=== PATIENT | male | born 1955 | race Caucasian/White ===

== ENCOUNTER → 2016-12-13 | Outpatient (REF) | payer BC ==
[2016-12-13 17:18] LABS: FOLATE > 24.0 NG/ML; VITAMIN B12 LEVEL 410 PG/ML
== END ==
LOC: M LAB REF 16:11
PROVIDERS: ATTEND Nurse Practitioner Family
DX: R41.3 Other amnesia (principal)

== ENCOUNTER → 2017-01-24 | Outpatient (CLI) | payer BC ==
[~2017-01-24] VITALS: Ht 180.3 cm; Wt 90.7 kg
[~2017-01-24] MED LIST: ALEV220T26 PO; LIDOCAINE 2% INJ 100 MG/5 ML SDV (FOR ANES.) As Ordered ONE; NS 1,000 ML IV SCH; PROPOFOL 200 MG/20 ML VIAL As Ordered ONE; fentaNYL 100 MCG/2 ML INJECTION (J3010) As Ordered ONE
--- NOTE | 2017-01-24 12:41 | ROOR ---
Patient Name: Johnathan Garcia Procedure Date: 01/24/2017 12:21 PM Date of : 1955 Age: 61 Room: [facility] Gender: Male Note Status: Finalized Procedure: Upper GI endoscopy Indications: Heartburn Providers: Johnathan BROWNING MD Referring MD: VIVIANA NAIK NP Requesting Provider: Medicines: Monitored Anesthesia Care Complications: No immediate complications. Procedure: Pre-Anesthesia Assessment: - The heart rate, respiratory rate, oxygen saturations, blood pressure, adequacy of pulmonary ventilation, and response to care were monitored throughout the procedure. The Endoscope was introduced through the mouth, and advanced to the second part of duodenum. The upper GI endoscopy was accomplished without difficulty. The patient tolerated the procedure well. Findings: Mildly severe esophagitis was found at the gastroesophageal junction. A single 5 mm mucosal nodule was found at the gastroesophageal junction. Biopsies were taken with a cold forceps for histology. Mild inflammation was found in the gastric antrum. Biopsies were taken with a cold forceps for Helicobacter pylori testing. The exam was otherwise without abnormality. Impression: - Mild to moderate reflux esophagitis with inflammatory appearing nodularity. Biopsied rule out short segment Schmidt's esophagus. - Mild Gastritis. Biopsied. - The examination was otherwise normal. Recommendation: - Use Prilosec (omeprazole) 40 mg PO daily. - (the script was sent to your pharmacy on file) - Telephone endoscopist for pathology results in 2 weeks. Johnathan Browning MD Johnathan BROWNIGN MD 01/24/2017 12:41:22 PM This report has been signed electronically. Number of Addenda: 0 Note Initiated On: 01/24/2017 12:21 PM Estimated Blood Loss: Estimated blood loss: none.
--- NOTE | 2017-01-24 12:55 | ROOR ---
Patient Name: Johnathan Garcia Procedure Date: 01/24/2017 12:21 PM Date of : 1955 Age: 61 Room: [facility] Gender: Male Note Status: Finalized Procedure: Colonoscopy Indications: Screening for colorectal malignant neoplasm Providers: Johnathan BROWNING MD Referring MD: VIVIANA NAIK NP Requesting Provider: Medicines: Monitored Anesthesia Care Complications: No immediate complications. Procedure: Pre-Anesthesia Assessment: - The heart rate, respiratory rate, oxygen saturations, blood pressure, adequacy of pulmonary ventilation, and response to care were monitored throughout the procedure. The Colonoscope was introduced through the anus and advanced to the cecum, identified by appendiceal orifice and ileocecal valve. The colonoscopy was performed without difficulty. The patient tolerated the procedure well. The quality of the bowel preparation was good. Findings: The perianal and digital rectal examinations were normal. Internal hemorrhoids were found during retroflexion. The hemorrhoids were moderate. The entire examined colon appeared normal on direct and retroflexion views. Impression: - Internal hemorrhoids. - The colon is normal on direct and retroflexion views. - No specimens collected. Recommendation: - Repeat colonoscopy in 10 years for screening purposes. Johnathan Browning MD Johnathan BROWNING MD 01/24/2017 12:54:50 PM This report has been signed electronically. Number of Addenda: 0 Note Initiated On: 01/24/2017 12:21 PM Estimated Blood Loss: Estimated blood loss: none.
[2017-01-24 13:22] VITALS: BP 136/76
== END | disposition home or self-care (01) ==
LOC: M OPP 10:18
PROVIDERS: ATTEND Internal Medicine Gastroenterology
DX: Z12.11 Encounter for screening for malignant neoplasm of colon (principal); K64.8 Other hemorrhoids; R12 Heartburn; K21.0 Gastro-esophageal reflux disease with esophagitis; K22.8 Other specified diseases of esophagus; K29.70 Gastritis, unspecified, without bleeding; R51 Headache; R06.02 Shortness of breath; F17.210 Nicotine dependence, cigarettes, uncomplicated; Z79.899 Other long term (current) drug therapy; Z80.3 Family history of malignant neoplasm of breast; Z80.0 Family history of malignant neoplasm of digestive organs
CPT/HCPCS: 43239; 88305; 99156; 99157; G0121; J3010

== ENCOUNTER 2017-04-07 03:17 | Emergency (ER) | payer BC ==
[~2017-04-07] VITALS: Ht 180.3 cm; Wt 105.0 kg
[~2017-04-07 03:17] MED LIST changes: -LIDOCAINE 2% INJ 100 MG/5 ML SDV (FOR ANES.) As Ordered ONE; -NS 1,000 ML IV SCH; -PROPOFOL 200 MG/20 ML VIAL As Ordered ONE; -fentaNYL 100 MCG/2 ML INJECTION (J3010) As Ordered ONE
[2017-04-07] MEDS ORDERED: MORPHINE 4 MG/ML 1ML SYRINGE IM ONE (04:00)
--- NOTE | 2017-04-07 05:50 | REPUSA ---
CLINICAL HISTORY: Left upper extremity edema COMMENTS: Real time sonography with duplex doppler of the left upper extremity was performed with attention to the major deep venous structures. The left internal jugular, cephalic, basilic, radial and ulnar veins all reveal complete lumen compre ssibility without intraluminal thrombus. The left subclavian and axillary veins are also clear of thr ombus. There is normal spontaneous phasic flow and augmentation throughout the deep veins. IMPRESSION: No evidence of DVT in the left upper extremity. Thank you for your kind referral of this patient.
--- NOTE | 2017-04-07 06:40 | REPUSA ---
CLINICAL HISTORY: Wrist pain. COMMENTS: Standard views show no fracture or other significant osseous abnormality. Metacarpophalangeal joints are preserved. Soft tissue structures are intact. Mild osteoarthritic changes are noted at the 1st carpometacarpal joint demonstrated by osteophytosis, endplate sclerosis and joint space narrowing. IMPRESSION: 1. Osteoarthritic changes at the1st carpometacarpal joint. 2. No fracture or dislocation. Thank you for your kind referral of this patient.
[2017-04-07] MEDS ORDERED: TRAM50TA2 PO (06:46)
[2017-04-07 06:54] VITALS: BP 139/86
--- NOTE | 2017-04-07 07:40 | REP ---
Clinical: Pain and swelling Technique: AP, lateral left forearm. Findings: The osseous structures and joint spaces are intact and normal. There is no evidence for acute fracture or dislocation. Surrounding soft tissues are unremarkable. No subcutaneous emphysema or radiodense foreign body. Impression: Age appropriate examination. No acute fracture or dislocation. Signed by Neymar House MD 04/07/2017 07:32 A
== END 2017-04-07 07:12 | disposition home or self-care (01) ==
LOC: M ED 03:17
DX: M79.632 Pain in left forearm (principal); M79.89 Other specified soft tissue disorders; F17.200 Nicotine dependence, unspecified, uncomplicated

== ENCOUNTER → 2017-06-19 | Outpatient (REF) | payer BC ==
[~2017-06-19] MED LIST changes: +TRAM50TA2 PO
[2017-06-21 00:06] LABS: Lyme Disease IgG/IgM Antibodie <0.91 ISR (0.00-0.90); Lyme Disease IgM Ab Quantitati <0.80 index (0.00-0.79)
== END ==
LOC: M LAB REF 12:20
PROVIDERS: ATTEND Nurse Practitioner Family
DX: R21 Rash and other nonspecific skin eruption (principal)

== ENCOUNTER → 2017-12-15 | Outpatient (REF) | payer BC | LOC: M LAB REF 12:04 | DX: Z01.89 Encounter for other specified special examinations (principal) | CPT/HCPCS: 86803 ==

== ENCOUNTER → 2017-12-15 | Outpatient (CLI) | payer BC | LOC: M WUC 10:17 | DX: R06.02 Shortness of breath (principal); F17.210 Nicotine dependence, cigarettes, uncomplicated | CPT/HCPCS: 71046 ==

== ENCOUNTER → 2018-11-30 | Outpatient (CLI) | payer BC ==
--- NOTE | 2018-11-30 10:06 | REP ---
CERVICAL SPINE, EIGHT VIEWS: HISTORY: Neck and shoulder pain. The cervical spine is visualized from C1-C7 in the lateral radiographs. There is no acute fracture or subluxation. The C4-5 through C6-7 intervertebral discs are decreased in height consistent with disc degeneration. Osteophytes are present on C2 and C5-7. The neural foramina are patent. IMPRESSION: Degenerative change as described above. Electronically Signed by Kahlil Bazan MD 11/30/2018 10:22 A
== END ==
LOC: M WUC 08:47
PROVIDERS: ATTEND Physician Assistant
DX: M50.321 Other cervical disc degeneration at C4-C5 level (principal); M50.322 Other cervical disc degeneration at C5-C6 level; M50.323 Other cervical disc degeneration at C6-C7 level; M25.78 Osteophyte, vertebrae

== ENCOUNTER → 2019-03-08 | Outpatient (CLI) | payer BC ==
--- NOTE | 2019-03-08 13:18 | REP ---
Chronic back pain. COMPARISON: None. There is posterior disc space narrowing moderately at every level with anterior lipping. Vertebral body height and alignment is within normal limits. Degenerative facet joint changes are present at every level bilaterally. There is partial syndesmophyte formation seen bilaterally at L2-3 and on the left at L3-4. The pedicles are intact bilaterally. There is a possible mild grade 1 T12 compression deformity difficult to evaluate on this lumbar spine exam. IMPRESSION: 1. Chronic lumbar spine changes as described above. 2. Possible mild grade 1 T12 compression fracture. If that is the area of pain then I would recommend a thoracic spine series or an MRI if marrow edema is of clinical concern. Electronically Signed by Mahin Juárez DO 03/08/2019 04:43 P
== END ==
LOC: M WUC 12:04
PROVIDERS: ATTEND Physician Assistant
DX: M54.5 Low back pain (principal)

== ENCOUNTER → 2019-12-29 | Outpatient (REF) | payer BC | LOC: M WUC 12:09 | PROVIDERS: ATTEND Physician Assistant | DX: R05 Cough (principal) ==

== ENCOUNTER → 2020-03-19 | Outpatient (CLI) | payer BC ==
[~2020-03-19] MED LIST changes: +IBUP-1114 PO; +OMEP-221
--- NOTE | 2020-03-19 09:14 | REP ---
Clinical: Nontraumatic right shoulder pain. Technique: Internal rotation, external rotation, and Y view of the right shoulder. Findings: Small calcifications adjacent to the greater tuberosity suggest element of calcific tendinopathy. Cortical irregularity and subtle spurring at the acromioclavicular joint is also appreciated. The glenohumeral joint is intact and relatively normal. The subacromial space is normal. No acute fracture or dislocation. Impression: Early arthritic changes primarily involving the acromioclavicular joint as well as a evidence for calcific tendinopathy. Electronically Signed by Neymar House MD 03/19/2020 09:05 A
== END ==
LOC: M WUC 08:49
PROVIDERS: ATTEND Physician Assistant
DX: M25.511 Pain in right shoulder (principal); M19.011 Primary osteoarthritis, right shoulder

== ENCOUNTER → 2020-06-05 | Outpatient (CLI) | payer BC ==
[~2020-06-05] MED LIST changes: -IBUP-1114 PO; -OMEP-221
--- NOTE | 2020-07-01 08:08 | REP ---
LEFT SHOULDER SERIES CLINICAL: Pain. TECHNIQUE: Internal rotation, external rotation, and Y view of the left shoulder. FINDINGS: Cortical irregularity and spurring at the acromioclavicular joint is appreciated. Tendinous calcifications identified adjacent to the greater tuberosity. The acromioclavicular joint is relatively age appropriate. The subacromial space is normal. IMPRESSION: Early arthritic changes primarily involving the acromioclavicular joint, as well as calcific tendinopathy. MTDD
== END ==
LOC: M WUC 14:08
PROVIDERS: ATTEND Nurse Practitioner Family
DX: M25.512 Pain in left shoulder (principal)

== ENCOUNTER → 2020-10-31 | Outpatient (CLI) | payer BC ==
[~2020-10-31] MED LIST changes: +IBUP-1114 PO; +OMEP-221
== END ==
LOC: M LABSMTC 08:01
PROVIDERS: ATTEND Anesthesiology
DX: Z01.812 Encounter for preprocedural laboratory examination (principal); Z20.822 Contact with and (suspected) exposure to COVID-19

== ENCOUNTER 2020-11-05 07:43 | Day surgery (SDC) | payer BC ==
[~2020-11-05] VITALS: Ht 180.3 cm; Wt 83.0 kg
[~2020-11-05 07:43] MED LIST changes: +NS 1,000 ML IV ONE
[2020-11-05] MEDS ORDERED: fentaNYL 100 MCG/2 ML INJECTION (J3010) As Ordered ONE (08:25)
[2020-11-05] MEDS ORDERED: LIDOCAINE 2% 100MG/5ML SDV (FOR ANES.) As Ordered ONE (08:31)
[2020-11-05] MEDS ORDERED: propofoL 200 MG/20 ML VIAL As Ordered ONE (08:31)
--- NOTE | 2020-11-05 08:41 | ROOR ---
Patient Name: Johnathan Garcia Procedure Date: 11/05/2020 8:18 AM Date of : 1955 Age: 65 Room: [facility] Gender: Male Note Status: Finalized Procedure: Upper GI endoscopy Indications: Surveillance for malignancy due to personal history of Schmidt's esophagus Providers: Johnathan BROWNING MD Referring MD: Diamond Alexandre NP Requesting Provider: Medicines: Monitored Anesthesia Care Complications: No immediate complications. Procedure: Pre-Anesthesia Assessment: - The heart rate, respiratory rate, oxygen saturations, blood pressure, adequacy of pulmonary ventilation, and response to care were monitored throughout the procedure. The Endoscope was introduced through the mouth, and advanced to the second part of duodenum. The upper GI endoscopy was accomplished without difficulty. The patient tolerated the procedure well. Findings: The Z-line was variable and was found 42 cm from the incisors. Biopsies were taken with a cold forceps for histology. The exam of the esophagus was otherwise normal. Small Hiatal Hernia. The entire examined stomach was normal. The examined duodenum was normal. Impression: - Z-line variable, 42 cm from the incisors. Biopsied. - Otherwise normal esophagus. - Small Hiatal Hernia. - Otherwise normal stomach. - Normal examined duodenum. Recommendation: - Use Prilosec (omeprazole) 40 mg PO daily indefinitely. - Repeat upper endoscopy in 3 years for surveillance. Procedure Code(s): --- Professional --- 40596, Esophagogastroduodenoscopy, flexible, transoral; with biopsy, single or multiple Diagnosis Code(s): --- Professional --- K22.70, Schmidt's esophagus without dysplasia K22.8, Other specified diseases of esophagus CPT copyright 2019 [employer]. All rights reserved. The codes documented in this report are preliminary and upon cut off sawyer review may be revised to meet current compliance requirements. Johnathan Browning MD Johnathan BROWNING MD 11/05/2020 8:40:47 AM Electronically signed by Johnathan BROWNING MD Number of Addenda: 0 Note Initiated On: 11/05/2020 8:18 AM Estimated Blood Loss: Estimated blood loss: none.
[2020-11-05 09:00] VITALS: BP 130/79
== END 2020-11-05 09:20 | disposition home or self-care (01) ==
LOC: M OPP 07:43
PROVIDERS: ATTEND Internal Medicine Gastroenterology
DX: K22.70 Barrett's esophagus without dysplasia (principal); R12 Heartburn; D13.0 Benign neoplasm of esophagus; K22.8 Other specified diseases of esophagus; K44.9 Diaphragmatic hernia without obstruction or gangrene; M19.90 Unspecified osteoarthritis, unspecified site; F17.210 Nicotine dependence, cigarettes, uncomplicated; Z79.899 Other long term (current) drug therapy; Z80.3 Family history of malignant neoplasm of breast; Z80.0 Family history of malignant neoplasm of digestive organs
CPT/HCPCS: 43239; 88305; J3010

== ENCOUNTER → 2022-02-15 | Outpatient (CLI) | payer BC ==
[~2022-02-15] MED LIST changes: -NS 1,000 ML IV ONE; -OMEP-221; +OMEP40CA5
== END ==
LOC: M WUC 08:54
PROVIDERS: ATTEND Registered Nurse
DX: R05.9 Cough, unspecified (principal)

== ENCOUNTER 2022-09-04 11:26 | Emergency (ER) | payer BC, MEDICARE ==
[2022-09-04] MEDS ORDERED: HYDR12CA (11:50)
[2022-09-04 12:04] LABS: BASO # 0.1 10^3/uL (0.0-0.2); BASO % 0.4 % (0.0-1.0); EOS % 0.1 % (0.0-3.0); HEMATOCRIT 49.6 % (42.0-52.0); HEMOGLOBIN 16.5 g/dl (13.5-17.5); LYMPH # 1.5 10^3/uL (1.5-5.0); LYMPH % 10.6 % (24.0-44.0); MEAN CORPUSCULAR HEMOGLOBIN 31.1 pg (27.0-33.0); MEAN CORPUSCULAR HGB CONC 33.3 g/dl (32.0-36.5); MEAN CORPUSCULAR VOLUME 93.4 fl (80.0-96.0); MONO # 1.1 10^3/uL (0.0-0.8); MONO % 7.5 % (2.0-8.0); NEUTROPHILS # 11.6 10^3/uL (1.5-8.5); PLATELET COUNT, AUTOMATED 258 10^3/uL (150-450); RED BLOOD COUNT 5.31 10^6/uL (4.30-6.10); VENOUS BASE EXCESS 0.9 (-2.0-2.0); VENOUS HCO3 27.6 MEQ/L (23.0-27.0); VENOUS O2 SATURATION 53.2 % (60.0-80.0); VENOUS PARTIAL PRESSURE CO2 51.2 mmHg (38.0-50.0); VENOUS PARTIAL PRESSURE O2 26.6 mmHg (30.0-50.0); VENOUS STANDARD HCO3 23.9 MEQ/L; VENOUS TOTAL CO2 29.2 MEQ/L (24.0-28.0); WHITE BLOOD COUNT 14.3 10^3/uL (4.0-10.0)
[2022-09-04 12:26] LABS: ALBUMIN 3.6 G/DL (3.2-5.2); ALKALINE PHOSPHATASE 118 U/L (46-116); ALT/SGPT 17 U/L (7.0-40); AST/SGOT 14 U/L (<34); BILIRUBIN,DIRECT 0.2 MG/DL (<0.4); BILIRUBIN,TOTAL 0.5 MG/DL (0.3-1.2); BLOOD UREA NITROGEN 16 MG/DL (9-23); CALCIUM LEVEL 9.2 MG/DL (8.3-10.6); CARBON DIOXIDE LEVEL 28 MMOL/L (20-31); CHLORIDE LEVEL 100 MMOL/L (98-107); CREATININE FOR GFR 0.87 MG/DL (0.70-1.30); GLOMERULAR FILTRATION RATE > 60.0 (>49); GLUCOSE, FASTING 103 MG/DL (74-106); POTASSIUM SERUM 4.2 MMOL/L (3.5-5.1); SODIUM LEVEL 137 MMOL/L (136-145); TOTAL PROTEIN 6.9 G/DL (5.7-8.2)
[2022-09-04 12:28] LABS: THYROXINE (T4) 6.6 UG/DL (4.5-10.9)
[2022-09-04 12:29] LABS: THYROID STIMULATING HORMONE 2.024 uIU/ML (0.55-4.78)
[2022-09-04] MEDS ORDERED: ISOVUE-370 76% 100ML VIAL As Ordered ONE (13:09)
[2022-09-04 14:30] VITALS: BP 122/76
== END 2022-09-04 14:47 | disposition home or self-care (01) ==
LOC: EDBD 11:26 → M ED 11:26
DX: R06.02 Shortness of breath (principal); R05.9 Cough, unspecified; R91.8 Other nonspecific abnormal finding of lung field; I70.0 Atherosclerosis of aorta; I10 Essential (primary) hypertension; K21.9 Gastro-esophageal reflux disease without esophagitis; F17.210 Nicotine dependence, cigarettes, uncomplicated; Z79.899 Other long term (current) drug therapy
CPT/HCPCS: 36415; 71045; 71275; 80048; 80076; 82803; 83605; 83880; 84436; 84443; 85025; 87040; 87486; 87581; 87633; 87798; 93005; 93041; 94760; 99285; Q9967

== ENCOUNTER → 2022-12-19 | Outpatient (REF) | payer MEDICARE, BC ==
[~2022-12-19] MED LIST changes: +HYDR12CA
== END ==
LOC: M LAB REF 12:24
PROVIDERS: ATTEND Physician Assistant Medical
DX: R10.11 Right upper quadrant pain (principal)

== ENCOUNTER → 2022-12-29 | Outpatient (CLI) | payer MEDICARE ==
[~2022-12-29] MED LIST changes: +GASTROGRAFIN SOLUTION 30ML ONE; +ISOVUE-370 76% 100ML VIAL ONE
== END ==
LOC: M PLAIMG 08:00
PROVIDERS: ATTEND Physician Assistant Medical
DX: R10.11 Right upper quadrant pain (principal)
CPT/HCPCS: 74177; Q9963; Q9967

== ENCOUNTER → 2023-02-07 | Outpatient (CLI) | payer MEDICARE ==
[~2023-02-07] MED LIST changes: -GASTROGRAFIN SOLUTION 30ML ONE; -ISOVUE-370 76% 100ML VIAL ONE
== END ==
LOC: M RAD 12:49
PROVIDERS: ATTEND Internal Medicine Pulmonary Disease
DX: R91.1 Solitary pulmonary nodule (principal)

== ENCOUNTER → 2023-04-17 | Outpatient (CLI) | payer MEDICARE ==
[2023-04-17 17:17] LABS: BASO # 0.1 10^3/uL (0.0-0.2); BASO % 0.5 % (0.0-1.0); EOS % 0.4 % (0.0-3.0); HEMATOCRIT 41.8 % (42.0-52.0); HEMOGLOBIN 13.9 g/dl (13.5-17.5); LYMPH # 1.5 10^3/uL (1.5-5.0); LYMPH % 13.2 % (24.0-44.0); MEAN CORPUSCULAR HEMOGLOBIN 30.6 pg (27.0-33.0); MEAN CORPUSCULAR HGB CONC 33.3 g/dl (32.0-36.5); MEAN CORPUSCULAR VOLUME 92.1 fl (80.0-96.0); MONO # 0.7 10^3/uL (0.0-0.8); MONO % 6.5 % (2.0-8.0); NEUTROPHILS # 8.9 10^3/uL (1.5-8.5); PLATELET COUNT, AUTOMATED 346 10^3/uL (150-450); RED BLOOD COUNT 4.54 10^6/uL (4.30-6.10); WHITE BLOOD COUNT 11.3 10^3/uL (4.0-10.0)
[2023-04-17 17:38] LABS: ERYTHROCYTE SEDIMENTATION RATE 48 mm/hr (0-20)
[2023-04-17 17:54] LABS: BLOOD UREA NITROGEN 20 MG/DL (9-23); CALCIUM LEVEL 9.2 MG/DL (8.3-10.6); CARBON DIOXIDE LEVEL 28 MMOL/L (20-31); CHLORIDE LEVEL 102 MMOL/L (98-107); CREATININE FOR GFR 0.94 MG/DL (0.70-1.30); GLOMERULAR FILTRATION RATE > 60.0 (>49); GLUCOSE, FASTING 86 MG/DL (74-106); POTASSIUM SERUM 4.5 MMOL/L (3.5-5.1); SODIUM LEVEL 139 MMOL/L (136-145); URIC ACID 7.5 MG/DL (3.7-9.2)
[2023-04-17 17:57] LABS: RHEUMATOID FACTOR QUANT < 3.5 IU/ML (<14)
== END ==
LOC: M PLALAB 14:55
PROVIDERS: ATTEND Student in an Organized Health Care Education/Training Program
DX: M25.562 Pain in left knee (principal)

== ENCOUNTER → 2023-06-23 | Outpatient (CLI) | payer MEDICARE | LOC: M WUC 11:44 | PROVIDERS: ATTEND Physician Assistant Medical | DX: M47.817 Spondylosis without myelopathy or radiculopathy, lumbosacral region (principal); M16.11 Unilateral primary osteoarthritis, right hip ==

== ENCOUNTER → 2023-07-12 | Outpatient (CLI) | payer MEDICARE | LOC: M PLALAB 15:54 | PROVIDERS: ATTEND Student in an Organized Health Care Education/Training Program | DX: S82.001A Unspecified fracture of right patella, initial encounter for closed fracture (principal) ==

== ENCOUNTER → 2023-08-29 | Outpatient (CLI) | payer MEDICARE | LOC: M RAD 10:44 | PROVIDERS: ATTEND Student in an Organized Health Care Education/Training Program | DX: M79.661 Pain in right lower leg (principal) ==

== ENCOUNTER → 2023-08-30 | Outpatient (CLI) | payer MEDICARE ==
[2023-08-30 16:47] LABS: BLOOD UREA NITROGEN 20 MG/DL (9-23); CREATININE FOR GFR 0.86 MG/DL (0.70-1.30); GLOMERULAR FILTRATION RATE > 60.0 (>49)
== END ==
LOC: M PLALAB 13:58
PROVIDERS: ATTEND Student in an Organized Health Care Education/Training Program
DX: M79.661 Pain in right lower leg (principal)

== ENCOUNTER → 2023-09-19 | Outpatient (CLI) | payer MEDICARE | LOC: M PLAIMG 07:42 | PROVIDERS: ATTEND Internal Medicine Pulmonary Disease | DX: R91.1 Solitary pulmonary nodule (principal) ==

== ENCOUNTER → 2024-05-08 | Outpatient (CLI) | payer MEDICARE ==
[~2024-05-08] MED LIST changes: +ACET-897 PO; +FLOM0.4C39 PO; +HYDR12CA PO; +OMEP40CA4 PO; +TREL1AER INH; +VENTAER INH
== END ==
LOC: M RAD 08:13
PROVIDERS: ATTEND Internal Medicine Pulmonary Disease
DX: R91.1 Solitary pulmonary nodule (principal)

== ENCOUNTER → 2024-08-14 | Outpatient (CLI) | payer MEDICARE | LOC: M WUC 14:30 | PROVIDERS: ATTEND Physician Assistant Medical | DX: M54.2 Cervicalgia (principal) ==

== ENCOUNTER → 2024-12-10 | Outpatient (CLI) | payer MEDICARE | LOC: M WHC 06:45 | PROVIDERS: ATTEND Physician Assistant Medical | DX: K76.0 Fatty (change of) liver, not elsewhere classified (principal) ==

== ENCOUNTER → 2024-12-10 | Outpatient (CLI) | payer MEDICARE | LOC: M PLAIMG 06:44 | PROVIDERS: ATTEND Internal Medicine Pulmonary Disease | DX: R91.8 Other nonspecific abnormal finding of lung field (principal) ==

== ENCOUNTER → 2024-12-12 | Outpatient (CLI) | payer MEDICARE | LOC: M WUC 12:16 | PROVIDERS: ATTEND Physician Assistant Medical | DX: M54.50 Low back pain, unspecified (principal); M47.816 Spondylosis without myelopathy or radiculopathy, lumbar region ==

== ENCOUNTER → 2025-02-17 | Outpatient (CLI) | payer MEDICARE ==
[~2025-02-17] MED LIST changes: -FLOM0.4C39 PO; +ISOVUE-370 76% 100ML VIAL ONE; +TAMS-18 PO
== END ==
LOC: M PLAIMG 10:14
PROVIDERS: ATTEND Physician Assistant Medical
DX: R10.11 Right upper quadrant pain (principal); K76.0 Fatty (change of) liver, not elsewhere classified
CPT/HCPCS: 74177; Q9967

== ENCOUNTER 2025-08-11 06:45 | Day surgery (SDC) | payer MEDICARE ==
[~2025-08-11] VITALS: Ht 172.7 cm; Wt 92.5 kg
[~2025-08-11 06:45] MED LIST changes: +HYDR12.510; +HYDR12.510 PO; -HYDR12CA; -HYDR12CA PO; -ISOVUE-370 76% 100ML VIAL ONE
[2025-08-11] MEDS ORDERED: LIDOCAINE 2% 100 MG/5 ML SDV (FOR ANES.) As Ordered ONE (07:37)
[2025-08-11 07:48] VITALS: TEMP 98
[2025-08-11 08:11] VITALS: BP 136/72; O2SAT 99
== END 2025-08-11 08:24 | disposition home or self-care (01) ==
LOC: M OPP 06:45
PROVIDERS: ATTEND Internal Medicine Gastroenterology
DX: K22.89 Other specified disease of esophagus (principal); K22.70 Barrett's esophagus without dysplasia; Z79.51 Long term (current) use of inhaled steroids; Z79.899 Other long term (current) drug therapy; Z87.891 Personal history of nicotine dependence
CPT/HCPCS: 43239; 88305; J3010

== ENCOUNTER 2025-08-25 07:54 | Day surgery (SDC) | payer MEDICARE ==
[~2025-08-25] VITALS: Ht 180.3 cm; Wt 94.3 kg
[~2025-08-25 07:54] MED LIST changes: +LR 1,000 ML IV SCH; +MIDAZOLAM INJ 2 MG/2 ML VIAL As Ordered ONE
[2025-08-25] MEDS: TETRACAINE 0.5% OPHTH SOLN 4ML OD SCH (09:13)
[2025-08-25] MEDS: FLURBIPROFEN 0.03% OPHTH SOLN 2.5 ML OD SCH (09:13)
[2025-08-25] MEDS: PHENYLEPHRINE 2.5% OPHTH SOL 2ML OD SCH (09:13)
[2025-08-25] MEDS: CYCLOPENTOLATE 1% OPHTH SOLN 2 ML BTL OD SCH (09:13)
[2025-08-25] MEDS: LIDOCAINE 1% SDV 5 ML VIAL As Ordered ONE (11:04)
[2025-08-25] MEDS: CEFUROXIME 1 MG/0.1 ML INTRACAMERAL INJ As Ordered ONE (11:04)
[2025-08-25 11:29] VITALS: BP 146/83; TEMP 97.5; O2SAT 95
== END 2025-08-25 12:05 | disposition home or self-care (01) ==
LOC: M SDC 07:54
PROVIDERS: ATTEND Ophthalmology
DX: H25.11 Age-related nuclear cataract, right eye (principal); I10 Essential (primary) hypertension; J44.9 Chronic obstructive pulmonary disease, unspecified; Z79.899 Other long term (current) drug therapy; Z87.891 Personal history of nicotine dependence; K21.9 Gastro-esophageal reflux disease without esophagitis; K76.0 Fatty (change of) liver, not elsewhere classified; Z79.51 Long term (current) use of inhaled steroids
CPT/HCPCS: 66984; J0697; J2250; J3010; V2632